=== PATIENT | female | born 2000 | race Caucasian/White ===

== ENCOUNTER 2025-04-14 07:59 | Outpatient (CLI) | payer OTHER | END 2025-04-14 08:00 | disposition home or self-care (01) | LOC: CSHULT 07:59 | PROVIDERS: ATTEND Nurse Practitioner Family | DX: N63.25 Unspecified lump in the left breast, overlapping quadrants (principal); N64.4 Mastodynia; Z80.3 Family history of malignant neoplasm of breast ==